=== PATIENT | female | born 1980 ===

== ENCOUNTER 2018-07-17 18:33 | Emergency (ER) | payer OTHER ==
[2018-07-17 18:39] VITALS: TEMP 97.9
--- NOTE | 2018-07-17 18:58 | ED PDOC ---
HPI: General Adult Time Seen by Provider: 07/17/18 18:40 Chief Complaint (Nursing): Weakness/Neurological Deficit Chief Complaint (Provider): Weakness History Per: Patient History/Exam Limitations: no limitations Onset/Duration Of Symptoms: Days (530pm) Current Symptoms Are (Timing): Better Additional Complaint(s): Pt. with dizziness like room spinning. Also with entire tongue feels heavy. No headaches, chest pain, numbness, tingles. No abd pain, nausea, vomit, diarrhea. Has weakness all over. Took some candy and started feeling much better. No dyspnea. No medical issues. Past Medical History Reviewed: Nursing Documentation, Vital Signs Vital Signs: Last Vital Signs Temp 97.9 F 07/17/18 18:37 Pulse 85 07/17/18 18:37 Resp 16 07/17/18 18:37 BP 143/85 07/17/18 18:37 Pulse Ox 100 07/17/18 18:37 - Surgical History Surgical History: No Surg Hx - Family History Family History: States: Unknown Family Hx - Social History Alcohol: None Drugs: Denies - Home Medications Home Medications: Ambulatory Orders Medication Instructions Recorded Meclizine [Meclizine*] 25 mg PO BID PRN #5 tab 07/17/18 - Allergies Allergies/Adverse Reactions: Allergies Allergy/AdvReac Type Severity Reaction Status Date / Time No Known Allergies Allergy Verified 07/17/18 18:36 Review of Systems ROS Statement: Except As Marked, All Systems Reviewed And Found Negative Neurological: Positive for: Weakness, Dizziness Physical Exam - Reviewed Nursing Documentation Reviewed: Yes Vital Signs Reviewed: Yes - Physical Exam Appears: Positive for: Well, Non-toxic, No Acute Distress Head Exam: Positive for: ATRAUMATIC, NORMAL INSPECTION, NORMOCEPHALIC Skin: Positive for: Normal Color, Warm, DRY Eye Exam: Positive for: EOMI, Normal appearance, PERRL ENT: Positive for: Normal ENT Inspection, Other (tongue moving with no issues and has no sensory deficits). Negative for: Nasal Congestion, Pharyngeal Erythema, Tonsillar Exudate Neck: Positive for: Normal, Painless ROM, Supple, Trachea Midline Cardiovascular/Chest: Positive for: Regular Rate, Rhythm Respiratory: Positive for: CNT, Normal Breath Sounds Gastrointestinal/Abdominal: Positive for: Normal Exam, Soft. Negative for: Tenderness Back: Positive for: Normal Inspection. Negative for: L CVA Tenderness, R CVA Tenderness Extremity: Positive for: Normal ROM. Negative for: Tenderness, Pedal Edema Neurologic/Psych: Positive for: Alert, grants and contracts assistant II-XII, Oriented. Negative for: Motor/Sensory Deficits, Cerebellar Tests, Gait, Aphasia, Facial Droop - Laboratory Results Result Diagrams: 07/17/18 19:55 07/17/18 19:55 Interpretation Of Abn Labs: no acute - ECG ECG: Positive for: Interpreted By Me, Viewed By Me ECG Rhythm: Positive for: Normal QRS, Normal ST Segment, Sinus Rhythm O2 Sat by Pulse Oximetry: 100 Pulse Ox Interpretation: Normal - CT Scan/US ct Other Rad Studies (CT/US): Read By Radiologist Other Rad Interpretation: no acute - Progress ED Course And Treament: 2201: Stable. AAOx3. Pain free. Tolerated PO. No symptoms currently. Ambulated with no issues. Fu with pcp. Disposition - Clinical Impression Clinical Impression: Paresthesia, Dizziness, Acute weakness - Patient ED Disposition Is Patient to be Admitted: No Counseled Patient/Family Regarding: Studies Performed, Diagnosis, Need For Followup, Rx Given - Disposition [facility]errals: [facility]] - 07/19/18 Disposition: Routine/Home Disposition Time: 22:02 Condition: STABLE Additional Instructions: Return if not better in 3 days. Prescriptions: Meclizine [Meclizine*] 25 mg PO BID PRN #5 tab PRN Reason: Dizziness Instructions: Weakness (ED), Dizziness, Nonvertigo, (DC), Paresthesias (DC) Print Language: ICELANDIC
[2018-07-17] MEDS ORDERED: Sodium Chloride 0.9% 1,000 ML IV STA (18:59)
[2018-07-17 19:59] LABS: BASO % 0.6 % (0.0-2.0); EOS # 0.1 K/uL (0.0-0.7); EOS % 1.6 % (0.0-4.0); HEMOGLOBIN 12.1 g/dL (12.0-16.0); LYMPH # 1.8 K/uL (1.0-4.3); LYMPH % 26.6 % (20.0-40.0); MEAN CELL VOLUME 88.4 fl (81.0-99.0); MEAN CORPUSCULAR HEMOGLOBIN 28.7 pg (27.0-31.0); MEAN CORPUSCULAR HGB CONC 32.5 g/dL (33.0-37.0); MEAN PLATELET VOLUME 9.1 fl (7.2-11.7); MONO # 0.5 K/uL (0.0-0.8); MONO % 7.6 % (0.0-10.0); NEUT # 4.2 K/uL (1.8-7.0); NEUT % 63.6 % (50.0-75.0); NRBC % 0.1 % (0.0-0.0); RBC 4.22 Mil/uL (3.80-5.20); WHITE BLOOD COUNT 6.7 K/uL (4.8-10.8)
[2018-07-17 20:09] LABS: ALB/GLOB RATIO 1.3 (1.0-2.1); ALBUMIN 4.3 g/dL (3.5-5.0); ALT/SGPT 62 U/L (9-52); AST/SGOT 40 U/L (14-36); BLOOD UREA NITROGEN 13 mg/dl (7-17); CALCIUM 8.8 mg/dL (8.4-10.2); GFR NON-AFRICAN AMERICAN > 60
[2018-07-17 21:43] VITALS: BP 118/60; PULSE 72; RESP 18
[2018-07-17 22:02] VITALS: O2SAT 100
--- NOTE | 2018-07-18 06:37 | CARD ---
APPROVED REPORT Date of service: 07/17/2018 EKG Measurement Heart [id number] CT [id number] <Conclusion> Normal sinus rhythm Normal ECG
--- NOTE | 2018-07-18 14:05 | CT ---
Date of service: 07/17/2018 PROCEDURE: CT HEAD WITHOUT CONTRAST. HISTORY: dizziness COMPARISON: None available. TECHNIQUE: Axial computed tomography images were obtained through the head/brain without intravenous contrast. Radiation dose: Total exam DLP = 915.13 mGy-cm. This CT exam was performed using one or more of the following dose reduction techniques: Automated exposure control, adjustment of the mA and/or kV according to patient size, and/or use of iterative reconstruction technique. FINDINGS: HEMORRHAGE: No intracranial hemorrhage. BRAIN: No mass effect or edema. No atrophy or chronic microvascular ischemic changes. VENTRICLES: Unremarkable. No hydrocephalus. CALVARIUM: Unremarkable. PARANASAL SINUSES: Unremarkable as visualized. No significant inflammatory changes. MASTOID AIR CELLS: Unremarkable as visualized. No inflammatory changes. OTHER FINDINGS: None. IMPRESSION: No evidence of acute intracranial hemorrhage mass effect or midline shift. Preliminary report contains concordant findings was submitted to the referring physicianby [facility] radiology
== END 2018-07-17 22:25 | disposition home or self-care (01) ==
LOC: H.ER 18:33
DX: M62.81 Muscle weakness (generalized) (principal); R42 Dizziness and giddiness; R20.2 Paresthesia of skin
CPT/HCPCS: 70450; 80053; 81025; 82948; 83735; 84100; 84484; 85025; 93005; 99285; J7030